=== PATIENT | female | born 1935 | race Caucasian/White ===

== ENCOUNTER 2016-05-27 19:19 | Inpatient (IN) ==
[2016-05-27] MEDS ORDERED: Acetaminophen 325 MG TABLET PO PRN (23:52)
[2016-05-27] MEDS ORDERED: Naloxone 0.4 MG/ML INJ IVP PRN (23:52)
[2016-05-27] MEDS ORDERED: Ondansetron 4 MG/2 ML VIAL IVP PRN (23:52)
[2016-05-27] MEDS ORDERED: *HR* Morphine 2 MG/ML SYRINGE IVP PRN (23:52)
--- NOTE | 2016-05-28 00:01 | Event Note ---
Date of Encounter: 05/28/16 Time of Encounter: 00:00 Patient seen and examined with medical coding manager. Uncomplicated acute diverticulitis. We will start the patient on Levaquin and Flagyl. Keep NPO except for medications tonight. Patient is on dual antiplatelet therapy for drug eluting stents placed about 6 months ago. We will continue those.
--- NOTE | 2016-05-28 00:11 | Internal Med History&Physical ---
Date of Encounter: 05/27/16 Time of Encounter: 23:00 Assessment and Plan (1) Diverticulitis Current visit: Yes Status: Acute Patient presented to outside ED with acute abdominal pain. CT showed enteritis and sigmoid diverticulitis. Patient was unable to tolerate PO antibiotics transferred to [facility] for inpatient management. Diverticulitis uncomplicated at this time. Patient will be NPO, given IV fluids and IV antibiotics. Expect patient to progress appropriately. Will transition to PO antibiotics when appropriate. 1. NPO 2. IV fluids at 100 mils per hour 3. Pain management 4. Zofran for nausea prn 5. Metronidazle 500mg IV Q8H 6. Levofloxacin 500mg IV Q24H Qualifiers: Diverticulitis site: large intestine Diverticulitis bleeding: without bleeding Diverticulitis complication: without perforation or abscess Qualified Code(s): K57.32 - Diverticulitis of large intestine without perforation or abscess without bleeding (2) CAD (coronary artery disease) Current visit: No Status: Chronic Patient with history of CAD s/p stent. She is on telemetry monitoring. Will continue home aspirin and plavix. Qualifiers: Coronary Disease-Associated Artery/Lesion type: [place] artery [place] vs. transplanted heart: [place] heart Associated angina: angina presence unspecified Qualified Code(s): I25.10 - Atherosclerotic heart disease of [place] coronary artery without angina pectoris (3) CHF (congestive heart failure) Current visit: No Status: Chronic Patient with history of CHF on lasix. Not in acute exacerbation at this time. No crackles on exam, no pedal edema, no shortness of breath. Continue home does lasix. Qualifiers: Congestive heart failure type: combined Congestive heart failure chronicity : acute on chronic Qualified Code(s): I50.43 - Acute on chronic combined systolic (congestive) and diastolic (congestive) heart failure (4) CKD (chronic kidney disease) Current visit: No Status: Chronic Patient with history of CKD. Creatinine 1.48 on admission which appears to be baseline. Will continue to monitor kidney function Qualifiers: Chronic kidney disease stage: stage 3 (moderate) Qualified Code(s): N18.3 - Chronic kidney disease, stage 3 (moderate) (5) HTN (hypertension) Current visit: No Status: Chronic Patient with history of hypertension. Will monitor blood pressure and continue home blood pressure medications. Qualifiers: Hypertension type: essential hypertension Qualified Code(s): I10 - Essential (primary) hypertension (6) Hypothyroid Current visit: No Status: Chronic Issue with history of hyperthyroid disease. Will continue home dose levothyroxine. Qualifiers: Hypothyroidism type: unspecified Qualified Code(s): E03.9 - Hypothyroidism , unspecified (7) DVT prophylaxis Current visit: Yes Status: Acute Heparin for DVT prophylaxis. Internal Medicine - H&P: HPI Chief complaint: Abdominal pain Admitted From: Hospital to Hospital Transfer Plans for Post Hospital Care: Home History of present illness: Ms. Leslie is a 80 year old female with PMH of kidney cancer, cardiomyopathy, CHF, CAD, CVA, GERD, HLD, HTN, renal disease and thyroid disease who presented to [facility] with abdominal pain. Patient reports that episodes of abdominal pain started last night. The pain is located in the middle of her abdomen, periumbilically. Patient has chronic constipation and she initially thought that the pain was due to that however she reports she had 3-4 small bowel movement this morning and the pain did not improve. She reports that the episodes started lasting longer and were more painful. Pain was 10/10 in severity when she presented to the ED. Patient reports that she never had pain like this before and she did not take any medications to try and relieve it. She reports associated fever/chills, sweating, belching, nausea/vomiting/dry heaves. Denies, MUNZO, changes in vision, dysphagia, chest pain/pressure, shortness of breath, changes in urinary function (incontinent baseline), or difficulty walking. In the [facility], patient had a temperature of 100.3 degrees. HR 80, RR 18- 20, blood pressure appropriate. O2 saturation 95% on room air. Labs revealed WBC of 12.7 with increased percent neutrophils. Creatinine elevated at 1.48 which appears to be around her baseline. CT abdomen/pelvis showed (1) prominent small bowel loops with inflammatory changes suggestive of enteritis and (2) sigmoid diverticul osis with wall thickening and possible inflammatory changes. Patient was given PO levaquin and flagyl in the ED with intent to seen patient home for outpatient management of diverticulosis. However, patient 's pain increased and she vomited. Because she was unable to tolerate PO antibiotics, she was given IV ertapenum and transferred to [facility]. On exam, patient is awake and alert, in no acute distress. She appears dry on exam. Heart regular rate and rhythm. Lungs clear to auscultation - no crackles. Abdomen soft, diffusely tender but worse periumbilically. No guarding, rebound or rigidity. No pedal edema. Past Med Surg Social Fam HX - Past Medical History Medical history: cancer, cardiomyopathy, CHF, coronary artery disease, CVA, GERD , hyperlipidemia, hypertension, renal disease, thyroid disease Psychiatric history: anxiety, depression - Past Surgical History Surgical History: cholecystectomy, herniorrhaphy, hip replacement, hysterectomy , knee replacement, orthopedic, other, other - Social History Smoking Status: Never smoker Smokeless Tobacco Status: No Alcohol use: none Drug use: none - Family History Father Living Status: Hx Family Cardiac Disorders: Yes Hx Family Respiratory Disorders: Yes Hx Family Cancer: Yes (Uterine) Hx Family GI Disorders: No Hx Family Endocrine Disorder: No Hx Family Neuromuscular Disorders: No Hx Family Neurologic Disorders: No Hx Family HEENT Disorders: No Hx Family Autoimmune Disorders: No Mother Adopted: No Living Status: Internal Medicine - H&P: Meds Levothyroxine Sodium [Tirosint] 75 mcg PO QAM 08/09/15 [History] Omeprazole [PriLOSEC] 20 mg PO BID 08/09/15 [History] Sertraline [Zoloft] 50 mg PO DAILY 08/09/15 [History] Simvastatin [Zocor] 20 mg PO QPM 08/09/15 [History] Aspirin Enteric Coated [Aspirin EC] 81 mg PO DAILY 10/27/15 [History] Ergocalciferol (VITAMIN D2) [Vitamin D2 (50,000 UNIT)] 50,000 unit PO QWEEK 01/01 [History] Ferrous Sulfate 325 mg PO DAILY 10/27/15 [History] Clopidogrel [Plavix] 75 mg PO DAILY #60 tablet 11/01/15 [Rx] Furosemide [Lasix] 20 mg PO DAILY 30 Days 11/01/15 [Rx] Metoprolol XL (24 HR) Succ [Toprol Xl] 12.5 mg PO DAILY 30 Days 11/01/15 [Rx] Potassium Chloride [Klor-Con Sprinkle] 10 meq PO DAILY #30 capsule.er 11/01/15 [ Rx] Levofloxacin [Levaquin] 750 mg PO DAILY #9 tablet 05/27/16 [Rx] MetroNIDAZOLE [Flagyl] 500 mg PO QID 9 Days 05/27/16 [Rx] Ondansetron ODT [Zofran ODT] 4 mg SL Q8HR PRN #6 tab.rapdis 05/27/16 [Rx] Allergies ceftriaxone [From Rocephin] Allergy (Verified 05/27/16 15:18) Hives Sulfa (Sulfonamide Antibiotics) Allergy (Verified 05/27/16 15:18) Hives All Systems PM: A 10-system review of systems was performed and is negative for pertinent findings except as documented above in the HPI. - Constitutional Constitutional: chills, excessive sweating, fever(s) - EENT Eyes: no as per HPI, no change in vision - Cardiovascular Cardiovascular ROS IM: diaphoresis, no chest pain, no claudication, no dyspnea, no dyspnea on exertion, no edema, no irregular heart rhythm, no lightheadedness , no orthopnea, no palpitations - Respiratory Respiratory: no cough, no dyspnea, no dyspnea on exertion, no wheezing - Gastrointestinal Gastrointestinal: abdominal pain, belching, constipation, cramping, nausea, vomiting, no dysphagia, no heartburn, no hematemesis, no hematochezia, no melena - Genitourinary Genitourinary: urinary incontinence - Neurological Neurological ROS: no confusion, no dizziness, no headache(s), no numbness, no weakness - Constitutional Vitals: Temp Pulse Resp BP Pulse Ox 98.7 F 72 15 127/67 93 L 05/27/16 23:50 05/27/16 23:50 05/27/16 23:50 05/27/16 23:50 05/27/16 23:50 General appearance: Present: A&O X 3, pleasant, no acute distress, answers questions appropriately - Head Head exam: Present: atraumatic, normal inspection, normocephalic - Eye Eye exam: Present: EOMI, normal appearance, PERRL - ENT ENT exam: Present: mucous membranes dry - Respiratory Respiratory exam: Present: CTAB. Absent: rales, rhonchi, wheezes - Cardiovascular Cardiovascular exam: Present: RRR - GI/Abdominal GI/Abdominal exam: Present: normal bowel sounds, soft, tenderness. Absent: distended, guarding, rebound, rigid - Extremities Exam Extremities exam: Present: normal inspection. Absent: pedal edema - Neurological Exam Neurological exam: Present: alert, CN II-XII intact, oriented X3, no focal deficits
[2016-05-28] MEDS: 0.9 % Sodium Chloride 1,000 ML IVC SCH ×3 (00:16→21:31)
[2016-05-28] MEDS: *HR* Heparin 5,000 UNIT/ML VIAL SQ SCH ×3 (06:02→21:30)
[2016-05-28] MEDS ORDERED: Furosemide 20 MG TABLET PO SCH (09:00)
[2016-05-28] MEDS ORDERED: POTASSIUM CHLORIDE 10 MEQ PO SCH (09:00)
[2016-05-28] MEDS: MetroNIDAZOLE 500 MG/100 ML 500 MG/100 ML BAG IVPB SCH ×2 (10:12→17:03)
[2016-05-28] MEDS: Metoprolol XL (24 HR) Succ 25 MG TAB.ER.24H PO SCH (10:13)
[2016-05-28] MEDS: Aspirin Enteric Coated 81 MG Tablet PO SCH (10:13)
[2016-05-28] MEDS ORDERED: Levofloxacin 500 MG/100 ML 500 MG/100 ML BAG IVPB SCH (18:00)
--- NOTE | 2016-05-28 23:56 | Internal Med Progress Note ---
Date of Encounter: 05/28/16 Time of Encounter: 15:30 - Subjective Interval history: Ms. Leslie is a 80 year old female with PMH of kidney cancer, cardiomyopathy, CHF, CAD, CVA, GERD, HLD, HTN, CKDIII, hypothyroidism admitted with abdominal pain and diarrhea. She reports less pain, she has not moved her bowel in 8 hours. No fever, chills. CT favor enteritis. She points to her mid abdomen as the site of her pain. O/E: Not in distress Moist mucosa Chest: clinically clear Heart: RRR, HS1/2 no Abdomen: non-distended, soft, non-tender, no masses, BS+, [employer]ANCH: aao x 3, no gross focal deficits Labs and imaging reviewed Leucocytosis has resolved. IMP Gastroenteritis, less likely diverticulitis, giving the location of her pain Leucocytosis likely related to vomiting, now resolved. Chronic morbidities Cardiomyopathy, CHF, CAD, CVA, GERD, HLD, HTN, CKDIII, hypothyroidism PLAN Start clear liquid diet Decrease IVF rate to 50 mls/hr. Continue other care Anticipate discharge tomorrow. - Constitutional Vitals: Temp Pulse Resp BP Pulse Ox 98.8 F 77 14 115/57 94 L 05/28/16 20:16 05/28/16 20:16 05/28/16 20:16 05/28/16 20:16 05/28/16 20:16 General appearance: Present: A&O X 3, pleasant, no acute distress, answers questions appropriately Consult Discharge Plan - Plan Referrals: Princess Love MD [Primary Care Provider] -
[2016-05-29] MEDS: MetroNIDAZOLE 500 MG/100 ML 500 MG/100 ML BAG IVPB SCH ×2 (00:13→09:57)
[2016-05-29] MEDS ORDERED: 0.9 % Sodium Chloride 1,000 ML IVC SCH (00:25)
[2016-05-29 05:20] LABS: Immature Granulocytes % 0.2 % (0-4)
[2016-05-29 05:22] LABS: Basophils # 0.1 K/mcL (0.0-0.2); Basophils % 0.9 %; Eosinophils # 0.5 K/mcL (0.0-0.6); Eosinophils % 8.2 %; Hematocrit 34.5 % (35.3-44.9); Hemoglobin 10.3 g/dL (11.5-15.4); Lymphocytes # 0.8 K/mcL (0.6-4.6); Lymphocytes % 14.5 %; Mean Corpuscular HGB Conc 29.9 g/dL (31.6-35.5); Mean Corpuscular Hemoglobin 25.5 pg (28.0-33.3); Mean Corpuscular Volume 85.4 fL (83.0-100.0); Mean Platelet Volume 11.1 fL (9.4-12.4); Monocytes # 0.5 K/mcL (0.0-1.3); Monocytes % 8.8 %; Neutrophils # 3.8 K/mcL (1.6-8.9); Platelet Count 156 K/mcL (140-400); Red Blood Count 4.04 M/mcL (3.82-4.97); Red Cell Distribution Width 22.7 % (11.5-14.5); Segmented Neutrophils % 67.4 %
[2016-05-29 05:44] LABS: Calcium 8.5 mg/dL (8.6-10.8); Potassium 3.9 mEq/L (3.5-4.5)
[2016-05-29 05:53] LABS: Platelet Estimate Normal (Normal)
[2016-05-29] MEDS: *HR* Heparin 5,000 UNIT/ML VIAL SQ SCH (06:17)
[2016-05-29] MEDS: Aspirin Enteric Coated 81 MG Tablet PO SCH (09:57)
[2016-05-29] MEDS: Metoprolol XL (24 HR) Succ 25 MG TAB.ER.24H PO SCH (09:57)
[2016-05-29 10:59] VITALS: BP 142/80
--- NOTE | 2016-05-29 11:07 | Discharge Summary ---
Date of Encounter: 05/29/16 Time of Encounter: 10:45 - Discharge Medications Prescriptions: Levofloxacin [Levaquin] 500 mg PO DAILY 10 Days MetroNIDAZOLE [Flagyl] 500 mg PO TID 10 Days Home Medications: Levothyroxine Sodium [Tirosint] 75 mcg PO QAM 08/09/15 [History] Omeprazole [PriLOSEC] 20 mg PO BID 08/09/15 [History] Sertraline [Zoloft] 50 mg PO DAILY 08/09/15 [History] Simvastatin [Zocor] 20 mg PO QPM 08/09/15 [History] Aspirin Enteric Coated [Aspirin EC] 81 mg PO DAILY 10/27/15 [History] Ferrous Sulfate 325 mg PO BID 10/27/15 [History] Clopidogrel [Plavix] 75 mg PO DAILY #60 tablet 11/01/15 [Rx] Furosemide [Lasix] 20 mg PO DAILY 30 Days 11/01/15 [Rx] Levofloxacin [Levaquin] 750 mg PO DAILY #9 tablet 05/27/16 [Rx] MetroNIDAZOLE [Flagyl] 500 mg PO QID 9 Days 05/27/16 [Rx] Ondansetron ODT [Zofran ODT] 4 mg SL Q8HR PRN #6 tab.rapdis 05/27/16 [Rx] Metoprolol XL (24 HR) Succ [Toprol Xl] 25 mg PO DAILY 05/28/16 [History] Potassium Chloride [K-Tab ER] 20 meq PO BID 05/28/16 [History] Levofloxacin [Levaquin] 500 mg PO DAILY 10 Days 05/29/16 [Rx] MetroNIDAZOLE [Flagyl] 500 mg PO TID 10 Days 05/29/16 [Rx] Allergies/Adverse Reactions: Allergies ceftriaxone [From Rocephin] Allergy (Verified 05/27/16 15:18) Hives Cephalosporins Allergy (Verified 05/28/16 11:51) Hives Sulfa (Sulfonamide Antibiotics) Allergy (Verified 05/27/16 15:18) Hives Date of admission: 05/28/16 15:24 Primary care physician: Princess Love, - Patient Status Disposition: Home, Self-Care Condition: Good Overall status at discharge: patient is progressing back to baseline - Discharge Instructions Follow Up With: Princess Love MD [Primary Care Provider] - - Diet and Activity Activity: resume usual activities as tolerated Diet: other (LOWER FIBER DIET FOR 1 week, then retrn to high fiber diet.) Hospital course: Ms. Leslie is a 80 year old female - Time Spent with Patient Total time spent providing and/or coordinating discharge services: - Constitutional Vitals: Temp Pulse Resp BP Pulse Ox 98.3 F 60 15 142/80 96 05/29/16 10:56 05/29/16 10:56 05/29/16 10:56 05/29/16 10:56 05/29/16 10:56 General appearance: Present: A&O X 3, pleasant, no acute distress, answers questions appropriately
== END 2016-05-29 12:30 | disposition home or self-care (01) | DRG 391 ==
LOC: 3BNU
PROVIDERS: ADMIT Internal Medicine; ATTEND Internal Medicine Endocrinology, Diabetes & Metabolism

== ENCOUNTER 2019-04-10 16:46 | Inpatient (IN) ==
[2019-04-10] MEDS ORDERED: Naloxone 0.4 MG/ML INJ IVP PRN (21:10)
[2019-04-10] MEDS ORDERED: Acetaminophen 325 MG TABLET PO PRN (21:10)
[2019-04-10] MEDS ORDERED: Ondansetron ODT 4 MG TAB.RAPDIS SL PRN (21:10)
[2019-04-10] MEDS ORDERED: 0.9 % Sodium Chloride 1,000 ML IVC SCH (21:15)
[2019-04-10] MEDS ORDERED: methylPREDNISolone 125 MG/2 ML VIAL IVP ONE (21:19)
[2019-04-10] MEDS ORDERED: Ipratropium/Albuterol Neb 3 ML IH SCH (22:00)
[2019-04-10] MEDS: DilTIAZem 50 MG in 0.9 % Sodium Chloride 40 ML IVC SCH (22:09)
[2019-04-10] MEDS ORDERED: *HR* Metoprolol 5 MG/5 ML VIAL IVP ONE ×2 (23:23→23:24)
[2019-04-10] MEDS ORDERED: Levalbuterol Neb 1.25 MG/3 ML IH ONE (23:30)
[2019-04-11 01:43] LABS: Hematocrit 37.3 % (35.3-44.9); Mean Corpuscular HGB Conc 32.2 g/dL (31.6-35.5); Mean Corpuscular Hemoglobin 28.8 pg (28.0-33.3); Mean Corpuscular Volume 89.4 fL (83.0-100.0); Platelet Count 240 K/mcL (140-400); Red Blood Count 4.17 M/mcL (3.82-4.97); Red Cell Distribution Width 14.8 % (11.5-14.5); White Blood Count 10.3 K/mcL (4.3-11.1)
[2019-04-11] MEDS: DilTIAZem 50 MG in 0.9 % Sodium Chloride 40 ML IVC SCH ×3 (02:00→17:20)
[2019-04-11 02:04] LABS: Calcium 8.5 mg/dL (8.6-10.3); Potassium 3.8 mEq/L (3.5-5.1)
[2019-04-11] MEDS: Levalbuterol Neb 0.63 MG/3 ML IH SCH ×4 (03:51→21:30)
[2019-04-11] MEDS: *HR* Heparin 5,000 UNIT/ML VIAL SQ SCH ×2 (05:37→17:11)
[2019-04-11] MEDS ORDERED: methylPREDNISolone 125 MG/2 ML VIAL IVP SCH (06:00)
[2019-04-11] MEDS: Furosemide 40 MG/4 ML VIAL IVP SCH ×2 (06:40→17:10)
[2019-04-11] MEDS ORDERED: CarBAMazepine XR (12 hr) 100 MG TAB PO SCH (09:00)
[2019-04-11] MEDS: predniSONE 20 MG TABLET PO SCH (09:47)
[2019-04-11] MEDS: Nitrofurantoin (BID) 100 MG CAPSULE PO SCH ×2 (09:48→17:10)
[2019-04-11] MEDS: Aspirin Enteric Coated 81 MG Tablet PO SCH (09:48)
[2019-04-11] MEDS: hydrALAZINE 25 MG TABLET PO SCH (22:00)
[2019-04-11] MEDS: CarBAMazepine 100 MG TABLET PO SCH (22:00)
[2019-04-12] MEDS: Albumin 25% 25gram/100mL 25 GM/100 ML IV.SOLN IVPB SCH ×3 (00:17→16:15)
[2019-04-12 02:52] LABS: Calcium 8.8 mg/dL (8.6-10.3); Potassium 3.7 mEq/L (3.5-5.1)
[2019-04-12 03:03] LABS: Basophils % 0.2 %; Hematocrit 35.6 % (35.3-44.9); Hemoglobin 11.2 g/dL (11.5-15.4); Immature Granulocytes % 0.9 % (0-4); Lymphocytes # 0.4 K/mcL (0.6-4.6); Lymphocytes % 3.9 %; Mean Corpuscular HGB Conc 31.5 g/dL (31.6-35.5); Mean Corpuscular Hemoglobin 29.4 pg (28.0-33.3); Mean Corpuscular Volume 93.4 fL (83.0-100.0); Mean Platelet Volume 11.7 fL (9.4-12.4); Monocytes # 0.7 K/mcL (0.0-1.3); Monocytes % 6.4 %; Neutrophils # 9.4 K/mcL (1.6-8.9); Platelet Count 185 K/mcL (140-400); Red Blood Count 3.81 M/mcL (3.82-4.97); Red Cell Distribution Width 14.6 % (11.5-14.5); Segmented Neutrophils % 88.6 %; White Blood Count 10.6 K/mcL (4.3-11.1)
[2019-04-12] MEDS: Levalbuterol Neb 0.63 MG/3 ML IH SCH ×4 (03:52→22:01)
[2019-04-12] MEDS: DilTIAZem 50 MG in 0.9 % Sodium Chloride 40 ML IVC SCH ×2 (04:46→21:38)
[2019-04-12] MEDS: *HR* Heparin 5,000 UNIT/ML VIAL SQ SCH ×2 (06:38→18:16)
[2019-04-12] MEDS: predniSONE 20 MG TABLET PO SCH (08:35)
[2019-04-12] MEDS: Nitrofurantoin (BID) 100 MG CAPSULE PO SCH ×2 (08:35→16:15)
[2019-04-12] MEDS: Aspirin Enteric Coated 81 MG Tablet PO SCH (08:35)
[2019-04-12] MEDS: CarBAMazepine 100 MG TABLET PO SCH ×2 (08:35→21:29)
[2019-04-12] MEDS ORDERED: levoFLOXacin 750 MG/150 ML 750 MG/150 ML BAG IVPB SCH (09:00)
[2019-04-12] MEDS: hydrALAZINE 25 MG TABLET PO SCH ×2 (11:43→21:37)
[2019-04-12 20:16] LABS: Adenovirus Not Detected (Not Detect); Bordetella Pertussis Not Detected (Not Detect); Chlamydophila pneumoniae Not Detected (Not Detect); Coronavirus 229E Not Detected (Not Detect); Coronavirus HKU1 Not Detected (Not Detect); Coronavirus NL63 Not Detected (Not Detect); Coronavirus OC43 Not Detected (Not Detect); Human Metapneumovirus Not Detected (Not Detect); Human Rhinovirus/Enterovirus Not Detected (Not Detect); Influenza A Subtype 2009 H1 Not Detected (Not Detect); Influenza B Not Detected (Not Detect); Mycoplasma pneumoniae Not Detected (Not Detect); Parainfluenza Virus 1 Not Detected (Not Detect); Parainfluenza Virus 2 Not Detected (Not Detect); Parainfluenza Virus 3 Not Detected (Not Detect); Parainfluenza Virus 4 Not Detected (Not Detect); Respiratory Syncytial Virus Not Detected (Not Detect)
[2019-04-13] MEDS: Albumin 25% 25gram/100mL 25 GM/100 ML IV.SOLN IVPB SCH (00:34)
[2019-04-13 02:51] LABS: Calcium 9.2 mg/dL (8.6-10.3); Potassium 3.5 mEq/L (3.5-5.1)
[2019-04-13] MEDS: Levalbuterol Neb 0.63 MG/3 ML IH SCH ×4 (03:42→22:07)
[2019-04-13] MEDS: *HR* Heparin 5,000 UNIT/ML VIAL SQ SCH ×2 (06:02→17:12)
[2019-04-13] MEDS ORDERED: *HR* Metoprolol 5 MG/5 ML VIAL IVP PRN (08:38)
[2019-04-13] MEDS: Aspirin Enteric Coated 81 MG Tablet PO SCH (09:00)
[2019-04-13] MEDS: CarBAMazepine 100 MG TABLET PO SCH ×2 (09:00→20:30)
[2019-04-13] MEDS: hydrALAZINE 25 MG TABLET PO SCH (09:01)
[2019-04-13] MEDS: predniSONE 20 MG TABLET PO SCH (09:01)
[2019-04-13] MEDS ORDERED: Albumin 25% 25gram/100mL 25 GM/100 ML IV.SOLN IVPB SCH (16:00)
[2019-04-13] MEDS ORDERED: Furosemide 40 MG/4 ML VIAL IVP ONE (17:00)
[2019-04-14 02:58] LABS: Bilirubin,Urine Negative (Negative); Blood,Urine Negative (Negative); Clarity,Urine Clear (Clear); Color,Urine Yellow (Yellow); Glucose,Urine (UA) Normal (Normal); Ketones,Urine Negative (Negative); Leukocyte Esterase,Urine Negative (Negative); Nitrite,Urine Negative (Negative); Protein,Urine Trace mg/dL (Neg-Trace); Specific Gravity,Urine 1.021 (1.010-1.025); Urobilinogen,Urine Normal (Normal)
[2019-04-14] MEDS: Levalbuterol Neb 0.63 MG/3 ML IH SCH ×4 (03:55→21:48)
[2019-04-14] MEDS ORDERED: Albumin 25% 25gram/100mL 25 GM/100 ML IV.SOLN IVPB SCH (04:00)
[2019-04-14 05:30] LABS: Calcium 9.5 mg/dL (8.6-10.3); Potassium 4.2 mEq/L (3.5-5.1); Uric Acid 6.4 mg/dL (2.3-7.6)
[2019-04-14] MEDS: *HR* Heparin 5,000 UNIT/ML VIAL SQ SCH ×2 (06:10→16:25)
[2019-04-14] MEDS: CarBAMazepine 100 MG TABLET PO SCH ×2 (09:06→22:55)
[2019-04-14] MEDS: Aspirin Enteric Coated 81 MG Tablet PO SCH (09:06)
[2019-04-14] MEDS: predniSONE 20 MG TABLET PO SCH (09:06)
[2019-04-15] MEDS: Levalbuterol Neb 0.63 MG/3 ML IH SCH ×4 (03:36→21:56)
[2019-04-15] MEDS: *HR* Heparin 5,000 UNIT/ML VIAL SQ SCH ×2 (06:37→16:47)
[2019-04-15] MEDS: Aspirin Enteric Coated 81 MG Tablet PO SCH (08:43)
[2019-04-15] MEDS: CarBAMazepine 100 MG TABLET PO SCH ×2 (08:43→20:52)
[2019-04-15] MEDS: predniSONE 20 MG TABLET PO SCH (08:44)
[2019-04-16] MEDS: Levalbuterol Neb 0.63 MG/3 ML IH SCH ×2 (03:35→10:25)
[2019-04-16] MEDS: *HR* Heparin 5,000 UNIT/ML VIAL SQ SCH (05:26)
[2019-04-16 07:22] VITALS: BP 127/62
[2019-04-16] MEDS: Aspirin Enteric Coated 81 MG Tablet PO SCH (08:32)
[2019-04-16] MEDS: CarBAMazepine 100 MG TABLET PO SCH (08:32)
[2019-04-16] MEDS: predniSONE 20 MG TABLET PO SCH (08:32)
== END 2019-04-16 11:05 | DRG 280 ==
LOC: 2NENU → SUATTDRO 23:12
PROVIDERS: ADMIT Internal Medicine; ATTEND Family Medicine

== ENCOUNTER 2019-05-22 05:41 | Inpatient (IN) ==
[2019-05-22 06:33] LABS: Basophils # 0.1 K/mcL (0.0-0.2); Basophils % 1.2 %; Eosinophils # 0.4 K/mcL (0.0-0.6); Eosinophils % 3.8 %; Hemoglobin 12.7 g/dL (11.5-15.4); Immature Granulocytes % 0.6 % (0-4); Lymphocytes # 1.2 K/mcL (0.6-4.6); Lymphocytes % 12.2 %; Mean Corpuscular HGB Conc 30.2 g/dL (31.6-35.5); Mean Corpuscular Hemoglobin 29.1 pg (28.0-33.3); Mean Corpuscular Volume 96.3 fL (83.0-100.0); Mean Platelet Volume 10.9 fL (9.4-12.4); Monocytes % 10.1 %; Neutrophils # 7.2 K/mcL (1.6-8.9); Platelet Count 186 K/mcL (140-400); Red Blood Count 4.36 M/mcL (3.82-4.97); Red Cell Distribution Width 16.4 % (11.5-14.5); Segmented Neutrophils % 72.1 %
[2019-05-22 06:54] LABS: Alanine Aminotransferase 7 Units/L (7-52); Albumin 3.7 g/dL (3.5-5.7); Albumin/Globulin Ratio 1.5 (1.1-2.2); Alkaline Phosphatase 86 Units/L (34-104); Aspartate Amino Transferase 13 Units/L (13-39); BUN/Creatinine Ratio 14 (6-26); Bilirubin,Direct 0.2 mg/dL (0.0-0.2); Bilirubin,Indirect 0.7 mg/dL (0.0-1.0); Bilirubin,Total 0.9 mg/dL (0.3-1.0); Blood Urea Nitrogen 20 mg/dL (8-23); Calcium 9.4 mg/dL (8.6-10.3); Carbon Dioxide 28 mEq/L (23-29); Chloride 107 mEq/L (98-107); Globulin 2.4 g/dL (2.4-3.5); Glucose 95 mg/dL (70-105); INR 1.1; Osmolality,Calculated 292 (280-300); Potassium 4.2 mEq/L (3.5-5.1); Prothrombin Time 12.2 Seconds (9.4-12.1); Sodium 140 mEq/L (136-145); Total Protein 6.1 g/dL (6.4-8.9); Troponin I < 0.03 ng/mL (< 0.04); eGFR For African Americans 42 (> 60); eGFR For Non-African Americans 35 (> 60)
[2019-05-22 06:57] LABS: Activated Partial Thrombo Time 33.5 Seconds (26.0-36.0)
[2019-05-22] MEDS ORDERED: Furosemide 40 MG/4 ML VIAL IVP ONE (09:00)
[2019-05-22] MEDS ORDERED: Ipratropium/Albuterol Neb 3 ML IH PRN (09:38)
[2019-05-22 11:27] LABS: Bilirubin,Urine Negative (Negative); Blood,Urine Negative (Negative); Clarity,Urine Clear (Clear); Color,Urine Yellow (Yellow); Glucose,Urine (UA) Normal (Normal); Ketones,Urine Negative (Negative); Leukocyte Esterase,Urine Negative (Negative); Nitrite,Urine Negative (Negative); PH,Urine 6.5 pH Units (5.0-8.0); Protein,Urine Negative (Neg-Trace); Urobilinogen,Urine Normal (Normal)
[2019-05-22] MEDS ORDERED: Perflutren Lipid Microsphere 1.3 ML in 0.9 % Sodium Chloride 8.7 ML IVP ONE ×2 (15:22→15:26)
[2019-05-22] MEDS: Albumin 25% 25gram/100mL 25 GM/100 ML IV.SOLN IVPB SCH ×2 (16:15→23:38)
[2019-05-22] MEDS: Furosemide 40 MG/4 ML VIAL IVP SCH (16:15)
[2019-05-22] MEDS: Metoprolol 100 MG TABLET PO SCH (20:14)
[2019-05-23 06:10] LABS: Calcium 10.1 mg/dL (8.6-10.3); Potassium 3.4 mEq/L (3.5-5.1)
[2019-05-23] MEDS: Furosemide 40 MG/4 ML VIAL IVP SCH ×2 (07:25→16:18)
[2019-05-23] MEDS: Metoprolol 100 MG TABLET PO SCH ×2 (07:25→20:20)
[2019-05-23] MEDS: Aspirin Enteric Coated 81 MG Tablet PO SCH (07:26)
[2019-05-23] MEDS: Albumin 25% 25gram/100mL 25 GM/100 ML IV.SOLN IVPB SCH ×2 (07:28→16:19)
[2019-05-23] MEDS: *HR* Heparin 5,000 UNIT/ML VIAL SQ SCH (17:37)
[2019-05-24] MEDS: *HR* Heparin 5,000 UNIT/ML VIAL SQ SCH ×2 (05:35→17:29)
[2019-05-24] MEDS: Aspirin Enteric Coated 81 MG Tablet PO SCH (07:12)
[2019-05-24] MEDS: Furosemide 40 MG/4 ML VIAL IVP SCH (07:12)
[2019-05-24] MEDS: Metoprolol 100 MG TABLET PO SCH ×2 (07:13→21:49)
[2019-05-24 07:17] LABS: Calcium 10.7 mg/dL (8.6-10.3); Potassium 3.8 mEq/L (3.5-5.1)
[2019-05-24] MEDS: Furosemide 40 MG TABLET PO SCH (17:29)
[2019-05-25] MEDS: *HR* Heparin 5,000 UNIT/ML VIAL SQ SCH ×2 (06:06→17:18)
[2019-05-25] MEDS: Aspirin Enteric Coated 81 MG Tablet PO SCH (07:49)
[2019-05-25] MEDS: Metoprolol 100 MG TABLET PO SCH (07:50)
[2019-05-25] MEDS: Furosemide 40 MG TABLET PO SCH (07:50)
[2019-05-25 08:10] LABS: Calcium 9.6 mg/dL (8.6-10.3); Potassium 4.1 mEq/L (3.5-5.1)
[2019-05-25 12:53] LABS: Potassium 4.3 mEq/L (3.5-5.1)
[2019-05-25] MEDS ORDERED: 0.9 % Sodium Chloride 500 ML IVC ONE (14:30)
[2019-05-25] MEDS ORDERED: 0.9 % Sodium Chloride 500 ML ONE (14:48)
[2019-05-26] MEDS: Metoprolol 100 MG TABLET PO SCH ×2 (03:15→08:11)
[2019-05-26 05:41] LABS: Calcium 9.7 mg/dL (8.6-10.3); Potassium 4.1 mEq/L (3.5-5.1)
[2019-05-26] MEDS: Aspirin Enteric Coated 81 MG Tablet PO SCH (08:11)
[2019-05-26] MEDS: *HR* Heparin 5,000 UNIT/ML VIAL SQ SCH (08:11)
[2019-05-26 10:56] VITALS: BP 100/70
[2019-05-26 14:03] LABS: Calcium 9.7 mg/dL (8.6-10.3); Potassium 3.6 mEq/L (3.5-5.1)
== END 2019-05-26 16:16 | disposition home health service (06) | DRG 291 ==
LOC: EMEROOARM 05:41 → 3ANU 05:41 → SUATTDRO 09:35 → 3ANU 10:00
PROVIDERS: ADMIT Internal Medicine; ATTEND Internal Medicine

== ENCOUNTER 2019-07-19 12:54 | Inpatient (IN) ==
[2019-07-19] MEDS ORDERED: *HR* Promethazine 25 MG/ML VIAL IVP PRN (15:16)
[2019-07-19] MEDS ORDERED: Naloxone 0.4 MG/ML INJ IVP PRN (15:16)
[2019-07-19] MEDS: Bumetanide 1 MG/4 ML VIAL IVP SCH (16:54)
[2019-07-19] MEDS: Azithromycin 500 MG in 0.9 % Sodium Chloride 250 ML IVPB SCH (16:54)
[2019-07-19] MEDS: *HR* Heparin 5,000 UNIT/ML VIAL SQ SCH (16:54)
[2019-07-19] MEDS: Metoprolol 100 MG TABLET PO SCH (20:30)
[2019-07-20 04:49] LABS: Basophils # 0.1 K/mcL (0.0-0.2); Basophils % 0.8 %; Eosinophils # 0.4 K/mcL (0.0-0.6); Eosinophils % 4.5 %; Hematocrit 42.7 % (35.3-44.9); Hemoglobin 12.9 g/dL (11.5-15.4); Immature Granulocytes % 0.2 % (0-4); Lymphocytes # 1.4 K/mcL (0.6-4.6); Lymphocytes % 15.9 %; Mean Corpuscular HGB Conc 30.2 g/dL (31.6-35.5); Mean Corpuscular Hemoglobin 28.9 pg (28.0-33.3); Mean Corpuscular Volume 95.7 fL (83.0-100.0); Monocytes # 0.8 K/mcL (0.0-1.3); Monocytes % 9.5 %; Neutrophils # 6.1 K/mcL (1.6-8.9); Platelet Count 184 K/mcL (140-400); Red Blood Count 4.46 M/mcL (3.82-4.97); Red Cell Distribution Width 13.7 % (11.5-14.5); Segmented Neutrophils % 69.1 %; White Blood Count 8.8 K/mcL (4.3-11.1)
[2019-07-20 05:10] LABS: Calcium 9.1 mg/dL (8.6-10.3); Magnesium 2.1 mg/dL (1.6-2.6); Phosphorous 4.2 mg/dL (2.7-4.5); Potassium 4.1 mEq/L (3.5-5.1)
[2019-07-20] MEDS: *HR* Heparin 5,000 UNIT/ML VIAL SQ SCH ×2 (06:30→18:12)
[2019-07-20] MEDS: Aspirin Enteric Coated 81 MG Tablet PO SCH (08:35)
[2019-07-20] MEDS: Bumetanide 1 MG/4 ML VIAL IVP SCH ×2 (08:35→18:12)
[2019-07-20] MEDS: Metoprolol 100 MG TABLET PO SCH ×2 (08:35→19:30)
[2019-07-20] MEDS ORDERED: Albumin 25% 25gram/100mL 25 GM/100 ML IV.SOLN IVPB ONE (11:17)
[2019-07-20] MEDS: Azithromycin 500 MG in 0.9 % Sodium Chloride 250 ML IVPB SCH (18:11)
[2019-07-21] MEDS: *HR* Heparin 5,000 UNIT/ML VIAL SQ SCH (06:21)
[2019-07-21 07:02] LABS: Calcium 8.9 mg/dL (8.6-10.3); Potassium 4.5 mEq/L (3.5-5.1)
[2019-07-21] MEDS: Metoprolol 100 MG TABLET PO SCH (08:28)
[2019-07-21] MEDS: Aspirin Enteric Coated 81 MG Tablet PO SCH (08:30)
[2019-07-21] MEDS: Bumetanide 1 MG/4 ML VIAL IVP SCH (08:30)
[2019-07-21 12:13] VITALS: BP 105/66
[2019-07-21] MEDS: Azithromycin 500 MG in 0.9 % Sodium Chloride 250 ML IVPB SCH (15:37)
[2019-07-22] MEDS ORDERED: Azithromycin 250 MG TABLET PO SCH (09:00)
== END 2019-07-21 17:43 | disposition home health service (06) | DRG 291 ==
LOC: 2NENU → SUATTDRO 14:55 → 2ANU 07-20 20:20
PROVIDERS: ADMIT Internal Medicine; ATTEND Internal Medicine

== ENCOUNTER 2021-01-05 12:55 | Inpatient (IN) ==
[2021-01-05] MEDS ORDERED: Morphine Sulfate 2 MG/ML SYRINGE IVP ONE ×3 (13:22→19:00)
[2021-01-05 13:57] LABS: Basophils # 0.1 K/mcL (0.0-0.2); Eosinophils # 0.3 K/mcL (0.0-0.6); Eosinophils % 3.3 %; Hematocrit 44.5 % (35.3-44.9); Hemoglobin 13.5 g/dL (11.5-15.4); Immature Granulocytes % 0.4 % (0-4); Lymphocytes # 1.1 K/mcL (0.6-4.6); Lymphocytes % 13.6 %; Mean Corpuscular HGB Conc 30.3 g/dL (31.6-35.5); Mean Corpuscular Hemoglobin 28.3 pg (28.0-33.3); Mean Corpuscular Volume 93.3 fL (83.0-100.0); Mean Platelet Volume 11.1 fL (9.4-12.4); Monocytes # 0.6 K/mcL (0.0-1.3); Monocytes % 6.8 %; Neutrophils # 6.3 K/mcL (1.6-8.9); Platelet Count 175 K/mcL (140-400); Red Blood Count 4.77 M/mcL (3.82-4.97); Red Cell Distribution Width 13.7 % (11.5-14.5); Segmented Neutrophils % 74.9 %; White Blood Count 8.4 K/mcL (4.3-11.1)
[2021-01-05 14:06] LABS: INR 1.1; Prothrombin Time 11.9 Seconds (9.4-12.1)
[2021-01-05 14:09] LABS: Activated Partial Thrombo Time 30.6 Seconds (26.0-36.0)
[2021-01-05] MEDS ORDERED: Isovue-370 500 ML BOTTLE IVP ONE (14:51)
[2021-01-05 16:34] LABS: Calcium 9.2 mg/dL (8.6-10.3); Potassium 4.3 mEq/L (3.5-5.1)
[2021-01-05] MEDS ORDERED: Ipratropium/Albuterol Neb 3 ML IH PRN (22:01)
[2021-01-05] MEDS ORDERED: Acetaminophen 325 MG TABLET PO PRN (22:08)
[2021-01-05] MEDS ORDERED: *HR* OxyCODONE Immed Rel 5 MG TABLET PO PRN (22:08)
[2021-01-05] MEDS ORDERED: Naloxone 0.4 MG/ML INJ IVP PRN (22:08)
[2021-01-05] MEDS ORDERED: Prochlorperazine 10 MG/2 ML VIAL IVP PRN (22:16)
[2021-01-05] MEDS: Ergocalciferol (VIT D2) 50,000 UNIT (1.25MG) CAP PO SCH (22:33)
[2021-01-05 23:33] LABS: Influenza A PCR Negative (Negative); Influenza B PCR Negative (Negative); Resp. Syncytial Virus PCR Negative (Negative)
[2021-01-05 23:34] LABS: SARS-CoV-2 by PCR (In House) Negative (Negative)
[2021-01-06 01:47] LABS: Hematocrit 39.1 % (35.3-44.9); Hemoglobin 12.1 g/dL (11.5-15.4); Mean Corpuscular HGB Conc 30.9 g/dL (31.6-35.5); Mean Corpuscular Hemoglobin 28.9 pg (28.0-33.3); Mean Corpuscular Volume 93.3 fL (83.0-100.0); Mean Platelet Volume 11.2 fL (9.4-12.4); Platelet Count 160 K/mcL (140-400); Red Blood Count 4.19 M/mcL (3.82-4.97); Red Cell Distribution Width 13.6 % (11.5-14.5)
[2021-01-06 01:59] LABS: INR 1.1; Prothrombin Time 12.7 Seconds (9.4-12.1)
[2021-01-06 02:02] LABS: Activated Partial Thrombo Time 33.3 Seconds (26.0-36.0)
[2021-01-06 02:08] LABS: Albumin 3.5 g/dL (3.5-5.7); Chol/HDL Ratio 2.7 (0-4.9); Magnesium 2.2 mg/dL (1.6-2.6); Potassium 4.5 mEq/L (3.5-5.1)
[2021-01-06 02:51] LABS: Thyroid Stimulating Hormone 1.674 mcIU/mL (0.340-5.600)
[2021-01-06 06:41] LABS: Estimated Average Glucose 108 mg/dl; Hemoglobin A1C 5.4 %
[2021-01-06] MEDS ORDERED: Isovue-370 500 ML BOTTLE IVP ONE (08:40)
[2021-01-06] MEDS ORDERED: Famotidine 20 MG TABLET PO SCH (09:00)
[2021-01-06] MEDS ORDERED: Torsemide 20 MG TABLET PO SCH (09:00)
[2021-01-06] MEDS ORDERED: Metoprolol 100 MG TABLET PO SCH (09:00)
[2021-01-06] MEDS ORDERED: Ringers Solution, Lactated 1,000 ML IVC ONE (11:38)
[2021-01-06] MEDS ORDERED: 0.9 % Sodium Chloride 1,000 ML ONE (11:39)
[2021-01-06] MEDS ORDERED: *HR* FentaNYL (PF) 100 MCG/2 ML VIAL ONE ×2 (14:06→16:49)
[2021-01-06] MEDS: Aspirin Enteric Coated 81 MG Tablet PO SCH (15:51)
[2021-01-06] MEDS ORDERED: Heparin 1,000 UNITS/500 mL 500 ML ONE (16:47)
[2021-01-06] MEDS ORDERED: Lidocaine HCL 4 ML Topical Solution (Laryng-O-Jet Kit Sterile Pak) TP ONE (16:50)
[2021-01-06] MEDS ORDERED: *HR* Rocuronium Bromide 50 MG/5 ML VIAL ONE ×2 (16:50→18:57)
[2021-01-06] MEDS ORDERED: *HR* Succinylcholine 200 MG/10 ML VIAL IVP ONE (16:50)
[2021-01-06] MEDS ORDERED: Ondansetron 4 MG/2 ML VIAL ONE (16:50)
[2021-01-06] MEDS ORDERED: Lidocaine -MPF 2% 5 ML VIAL ONE ×3 (16:50→17:49)
[2021-01-06] MEDS ORDERED: *HR* Etomidate 40 MG/20 ML VIAL IVP ONE (16:57)
[2021-01-06] MEDS ORDERED: *HR* Vasopressin 20 UNIT/ML VIAL ONE ×2 (18:00→21:16)
[2021-01-06] MEDS ORDERED: Ondansetron 4 MG/2 ML VIAL IVP PRN (18:22)
[2021-01-06] MEDS ORDERED: Morphine Sulfate 2 MG/ML SYRINGE IVP PRN (18:22)
[2021-01-06] MEDS ORDERED: ceFAZolin 2,000 MG in Water for inj. (sterile) 20 ML IVP ONE (18:33)
[2021-01-06] MEDS ORDERED: Albumin Human 5% 25.0 GM/500 ML IV.SOLN ONE (21:18)
[2021-01-06] MEDS ORDERED: Sugammadex Sodium 200 MG/2 ML VIAL IV ONE (21:35)
[2021-01-06] MEDS ORDERED: Hyaluronidase 200 UNIT in 0.9 % Sodium Chloride 10 ML SQ ONE (22:48)
[2021-01-06] MEDS ORDERED: Phentolamine Mesylate 5 MG VIAL IJ ONE (23:45)
[2021-01-07] MEDS ORDERED: *HR* HYDROmorphone (PF) 1 MG/ML SYRINGE IVP PRN (01:04)
[2021-01-07] MEDS ORDERED: 0.9 % Sodium Chloride 500 ML IVC ONE ×2 (02:18→03:45)
[2021-01-07] MEDS: CeFAZolin 2,000 MG/120 ML BAG IVPB SCH ×4 (03:30→23:40)
[2021-01-07 04:30] LABS: Hematocrit 29.8 % (35.3-44.9); Hemoglobin 8.9 g/dL (11.5-15.4); Mean Corpuscular HGB Conc 29.9 g/dL (31.6-35.5); Mean Corpuscular Hemoglobin 28.6 pg (28.0-33.3); Mean Corpuscular Volume 95.8 fL (83.0-100.0); Mean Platelet Volume 11.4 fL (9.4-12.4); Platelet Count 122 K/mcL (140-400); Red Blood Count 3.11 M/mcL (3.82-4.97)
[2021-01-07 04:50] LABS: Calcium 8.6 mg/dL (8.6-10.3); Potassium 4.8 mEq/L (3.5-5.1)
[2021-01-07] MEDS: Famotidine 20 MG TABLET PO SCH (06:30)
[2021-01-07] MEDS ORDERED: Ringers Solution, Lactated 1,000 ML IVC ONE (07:39)
[2021-01-07] MEDS: Aspirin Enteric Coated 81 MG Tablet PO SCH (08:04)
[2021-01-07] MEDS: Metoprolol XL (24 HR) Succ 25 MG TAB.ER.24H PO SCH ×2 (08:05→13:06)
[2021-01-07] MEDS ORDERED: haloperidoL 1 MG TABLET PO PRN (13:08)
[2021-01-07] MEDS ORDERED: Iron Sucrose Complex 250 MG in 0.9 % Sodium Chloride 250 ML IVPB ONE (15:44)
[2021-01-07] MEDS ORDERED: Ringers Solution, Lactated 1,000 ML ONE (16:07)
[2021-01-07] MEDS ORDERED: Levalbuterol Neb 0.63 MG/3 ML IH PRN (16:08)
[2021-01-07] MEDS: *HR* Metoprolol 5 MG/5 ML VIAL IVP PRN (16:17)
[2021-01-07] MEDS ORDERED: *HR* Digoxin 0.5 MG/2 ML AMPUL IVP ONE ×2 (16:22→21:00)
[2021-01-07] MEDS ORDERED: *HR* Amiodarone 200 MG TABLET PO SCH (16:30)
[2021-01-07] MEDS ORDERED: Ringers Solution, Lactated 1,000 ML IVC SCH (16:30)
[2021-01-07] MEDS: Cyanocobalamin (B-12) 1,000 MCG/ML VIAL SQ ONE ×2 (16:38→17:06)
[2021-01-07] MEDS ORDERED: *HR* Digoxin 0.5 MG/2 ML AMPUL IVP PRN (21:00)
[2021-01-07] MEDS ORDERED: Temazepam 15 MG CAPSULE PO ONE (21:00)
[2021-01-08] MEDS: Famotidine 20 MG TABLET PO SCH (06:10)
[2021-01-08 06:45] LABS: Basophils % 0.4 %; Eosinophils % 0.3 %; Hematocrit 26.9 % (35.3-44.9); Hemoglobin 7.9 g/dL (11.5-15.4); Immature Granulocytes % 0.9 % (0-4); Lymphocytes # 0.9 K/mcL (0.6-4.6); Lymphocytes % 8.6 %; Mean Corpuscular HGB Conc 29.4 g/dL (31.6-35.5); Mean Corpuscular Hemoglobin 28.6 pg (28.0-33.3); Mean Corpuscular Volume 97.5 fL (83.0-100.0); Mean Platelet Volume 11.5 fL (9.4-12.4); Monocytes # 1.2 K/mcL (0.0-1.3); Monocytes % 11.2 %; Neutrophils # 8.2 K/mcL (1.6-8.9); Nucleated Red Blood Cells 0.2 /100 WBC (0); Platelet Count 140 K/mcL (140-400); Red Blood Count 2.76 M/mcL (3.82-4.97); Red Cell Distribution Width 14.4 % (11.5-14.5); Segmented Neutrophils % 78.6 %; White Blood Count 10.4 K/mcL (4.3-11.1)
[2021-01-08 07:03] LABS: Calcium 8.9 mg/dL (8.6-10.3); Magnesium 2.2 mg/dL (1.6-2.6); Potassium 4.4 mEq/L (3.5-5.1)
[2021-01-08] MEDS ORDERED: *HR* Digoxin 0.5 MG/2 ML AMPUL IVP PRN (07:39)
[2021-01-08] MEDS: Metoprolol XL (24 HR) Succ 25 MG TAB.ER.24H PO SCH (08:15)
[2021-01-08] MEDS: Aspirin Enteric Coated 81 MG Tablet PO SCH (08:15)
[2021-01-08] MEDS ORDERED: *HR* Digoxin 0.125 MG TABLET PO SCH (09:00)
[2021-01-08] MEDS ORDERED: Acetaminophen IV 1,000 MG/100 ML BAG IVPB ONE (09:23)
[2021-01-08] MEDS: CeFAZolin 2,000 MG/120 ML BAG IVPB SCH ×3 (15:48→23:03)
[2021-01-08] MEDS ORDERED: 0.9 % Sodium Chloride 250 ML IVC SCH (18:15)
[2021-01-08] MEDS: *HR* Metoprolol 5 MG/5 ML VIAL IVP PRN (23:53)
[2021-01-09 05:02] LABS: Basophils # 0.1 K/mcL (0.0-0.2); Basophils % 0.6 %; Eosinophils # 0.2 K/mcL (0.0-0.6); Eosinophils % 1.6 %; Hematocrit 27.4 % (35.3-44.9); Hemoglobin 8.3 g/dL (11.5-15.4); Lymphocytes # 0.9 K/mcL (0.6-4.6); Lymphocytes % 9.7 %; Mean Corpuscular HGB Conc 30.3 g/dL (31.6-35.5); Mean Corpuscular Hemoglobin 29.4 pg (28.0-33.3); Mean Corpuscular Volume 97.2 fL (83.0-100.0); Monocytes # 0.9 K/mcL (0.0-1.3); Monocytes % 9.8 %; Neutrophils # 7.2 K/mcL (1.6-8.9); Nucleated Red Blood Cells 0.2 /100 WBC (0); Platelet Count 151 K/mcL (140-400); Red Blood Count 2.82 M/mcL (3.82-4.97); Red Cell Distribution Width 14.3 % (11.5-14.5); Segmented Neutrophils % 77.3 %; White Blood Count 9.3 K/mcL (4.3-11.1)
[2021-01-09 05:21] LABS: Magnesium 2.1 mg/dL (1.6-2.6); Potassium 4.4 mEq/L (3.5-5.1)
[2021-01-09] MEDS: Famotidine 20 MG TABLET PO SCH (06:15)
[2021-01-09] MEDS: *HR* Metoprolol 5 MG/5 ML VIAL IVP PRN ×2 (06:15→13:39)
[2021-01-09] MEDS: Metoprolol XL (24 HR) Succ 25 MG TAB.ER.24H PO SCH (13:40)
[2021-01-09] MEDS: CeFAZolin 2,000 MG/120 ML BAG IVPB SCH ×2 (13:40→20:20)
[2021-01-09] MEDS: Aspirin Enteric Coated 81 MG Tablet PO SCH (13:40)
[2021-01-10] MEDS: CeFAZolin 2,000 MG/120 ML BAG IVPB SCH ×4 (01:20→23:47)
[2021-01-10 05:01] LABS: Basophils # 0.1 K/mcL (0.0-0.2); Basophils % 0.6 %; Eosinophils # 0.2 K/mcL (0.0-0.6); Eosinophils % 2.1 %; Hematocrit 27.5 % (35.3-44.9); Immature Granulocytes % 0.9 % (0-4); Lymphocytes # 0.8 K/mcL (0.6-4.6); Lymphocytes % 8.9 %; Mean Corpuscular HGB Conc 29.1 g/dL (31.6-35.5); Mean Corpuscular Hemoglobin 28.6 pg (28.0-33.3); Mean Corpuscular Volume 98.2 fL (83.0-100.0); Mean Platelet Volume 11.4 fL (9.4-12.4); Monocytes # 0.8 K/mcL (0.0-1.3); Monocytes % 8.1 %; Nucleated Red Blood Cells 0.2 /100 WBC (0); Platelet Count 129 K/mcL (140-400); Red Cell Distribution Width 14.6 % (11.5-14.5); Segmented Neutrophils % 79.4 %; White Blood Count 9.4 K/mcL (4.3-11.1)
[2021-01-10 05:02] LABS: Neutrophils # 7.5 K/mcL (1.6-8.9)
[2021-01-10 05:17] LABS: Calcium 8.4 mg/dL (8.6-10.3); Magnesium 2.1 mg/dL (1.6-2.6); Potassium 4.2 mEq/L (3.5-5.1)
[2021-01-10] MEDS: Famotidine 20 MG TABLET PO SCH (05:47)
[2021-01-10] MEDS: *HR* Digoxin 0.5 MG/2 ML AMPUL IVP SCH (10:42)
[2021-01-10] MEDS: Metoprolol XL (24 HR) Succ 25 MG TAB.ER.24H PO SCH (10:42)
[2021-01-10] MEDS: Aspirin Enteric Coated 81 MG Tablet PO SCH (10:42)
[2021-01-11] MEDS: *HR* Metoprolol 5 MG/5 ML VIAL IVP PRN (04:26)
[2021-01-11 04:57] LABS: Basophils # 0.1 K/mcL (0.0-0.2); Basophils % 0.6 %; Eosinophils # 0.3 K/mcL (0.0-0.6); Eosinophils % 3.7 %; Hemoglobin 8.3 g/dL (11.5-15.4); Immature Granulocytes % 0.6 % (0-4); Lymphocytes # 0.8 K/mcL (0.6-4.6); Lymphocytes % 9.2 %; Mean Corpuscular HGB Conc 29.6 g/dL (31.6-35.5); Mean Corpuscular Hemoglobin 28.7 pg (28.0-33.3); Mean Corpuscular Volume 96.9 fL (83.0-100.0); Mean Platelet Volume 10.8 fL (9.4-12.4); Monocytes # 0.8 K/mcL (0.0-1.3); Monocytes % 8.5 %; Neutrophils # 6.9 K/mcL (1.6-8.9); Nucleated Red Blood Cells 0.3 /100 WBC (0); Platelet Count 164 K/mcL (140-400); Red Blood Count 2.89 M/mcL (3.82-4.97); Red Cell Distribution Width 14.6 % (11.5-14.5); Segmented Neutrophils % 77.4 %; White Blood Count 8.9 K/mcL (4.3-11.1)
[2021-01-11 05:12] LABS: Calcium 8.5 mg/dL (8.6-10.3); Potassium 4.3 mEq/L (3.5-5.1)
[2021-01-11] MEDS: Famotidine 20 MG TABLET PO SCH (05:52)
[2021-01-11] MEDS: CeFAZolin 2,000 MG/120 ML BAG IVPB SCH ×3 (08:50→23:31)
[2021-01-11] MEDS: Aspirin Enteric Coated 81 MG Tablet PO SCH (08:51)
[2021-01-11] MEDS: *HR* Digoxin 0.5 MG/2 ML AMPUL IVP SCH (08:51)
[2021-01-11] MEDS: Metoprolol XL (24 HR) Succ 25 MG TAB.ER.24H PO SCH (08:52)
[2021-01-12 05:19] LABS: Basophils # 0.1 K/mcL (0.0-0.2); Basophils % 0.6 %; Eosinophils # 0.3 K/mcL (0.0-0.6); Eosinophils % 3.6 %; Hematocrit 27.3 % (35.3-44.9); Hemoglobin 8.3 g/dL (11.5-15.4); Immature Granulocytes % 0.8 % (0-4); Lymphocytes # 0.9 K/mcL (0.6-4.6); Lymphocytes % 9.7 %; Mean Corpuscular HGB Conc 30.4 g/dL (31.6-35.5); Mean Corpuscular Hemoglobin 29.5 pg (28.0-33.3); Mean Corpuscular Volume 97.2 fL (83.0-100.0); Mean Platelet Volume 10.9 fL (9.4-12.4); Monocytes # 0.8 K/mcL (0.0-1.3); Monocytes % 8.9 %; Neutrophils # 6.8 K/mcL (1.6-8.9); Nucleated Red Blood Cells 0.2 /100 WBC (0); Platelet Count 176 K/mcL (140-400); Red Blood Count 2.81 M/mcL (3.82-4.97); Red Cell Distribution Width 14.8 % (11.5-14.5); Segmented Neutrophils % 76.4 %; White Blood Count 8.8 K/mcL (4.3-11.1)
[2021-01-12 05:34] LABS: Calcium 8.6 mg/dL (8.6-10.3); Potassium 4.2 mEq/L (3.5-5.1)
[2021-01-12] MEDS: Famotidine 20 MG TABLET PO SCH (05:49)
[2021-01-12] MEDS: Aspirin Enteric Coated 81 MG Tablet PO SCH (07:42)
[2021-01-12] MEDS: Metoprolol XL (24 HR) Succ 25 MG TAB.ER.24H PO SCH ×2 (07:42→20:19)
[2021-01-12] MEDS: CeFAZolin 2,000 MG/120 ML BAG IVPB SCH ×2 (09:15→17:21)
[2021-01-12] MEDS: *HR* Digoxin 0.5 MG/2 ML AMPUL IVP SCH (09:16)
[2021-01-12] MEDS: Ergocalciferol (VIT D2) 50,000 UNIT (1.25MG) CAP PO SCH (20:21)
[2021-01-13] MEDS: CeFAZolin 2,000 MG/120 ML BAG IVPB SCH ×2 (00:21→07:57)
[2021-01-13 05:25] LABS: Basophils # 0.1 K/mcL (0.0-0.2); Basophils % 0.6 %; Eosinophils # 0.4 K/mcL (0.0-0.6); Eosinophils % 4.3 %; Hematocrit 27.3 % (35.3-44.9); Hemoglobin 8.3 g/dL (11.5-15.4); Immature Granulocytes % 1.1 % (0-4); Lymphocytes # 0.8 K/mcL (0.6-4.6); Lymphocytes % 9.3 %; Mean Corpuscular HGB Conc 30.4 g/dL (31.6-35.5); Mean Corpuscular Hemoglobin 29.5 pg (28.0-33.3); Mean Corpuscular Volume 97.2 fL (83.0-100.0); Mean Platelet Volume 10.9 fL (9.4-12.4); Monocytes # 0.7 K/mcL (0.0-1.3); Monocytes % 8.7 %; Neutrophils # 6.3 K/mcL (1.6-8.9); Nucleated Red Blood Cells 0.5 /100 WBC (0); Platelet Count 196 K/mcL (140-400); Red Blood Count 2.81 M/mcL (3.82-4.97); White Blood Count 8.3 K/mcL (4.3-11.1)
[2021-01-13 05:41] LABS: Calcium 8.6 mg/dL (8.6-10.3); Potassium 4.1 mEq/L (3.5-5.1)
[2021-01-13] MEDS: Famotidine 20 MG TABLET PO SCH (05:46)
[2021-01-13 06:37] VITALS: BP 129/74; PULSE 81; TEMP 97.9; O2SAT 94
[2021-01-13] MEDS: Metoprolol XL (24 HR) Succ 25 MG TAB.ER.24H PO SCH (07:56)
[2021-01-13] MEDS: Aspirin Enteric Coated 81 MG Tablet PO SCH (07:56)
[2021-01-13 11:17] LABS: Influenza A PCR Negative (Negative); Influenza B PCR Negative (Negative); Resp. Syncytial Virus PCR Negative (Negative); SARS-CoV-2 by PCR (In House) Negative (Negative)
== END 2021-01-13 15:06 | DRG 493 ==
LOC: EMEROOARM 12:55 → 4WAOSI 12:55 → SUATTDRO 22:08
PROVIDERS: ADMIT Internal Medicine; ATTEND Internal Medicine

== ENCOUNTER 2021-02-22 11:25 | Inpatient (IN) ==
[2021-02-22] MEDS ORDERED: Naloxone 0.4 MG/ML INJ IVP PRN (12:55)
[2021-02-22 13:59] LABS: Basophils % 0.3 %; Eosinophils % 0.3 %; Hematocrit 37.9 % (35.3-44.9); Hemoglobin 11.7 g/dL (11.5-15.4); Immature Granulocytes % 0.6 % (0-4); Lymphocytes # 0.8 K/mcL (0.6-4.6); Lymphocytes % 7.2 %; Mean Corpuscular HGB Conc 30.9 g/dL (31.6-35.5); Mean Corpuscular Hemoglobin 29.8 pg (28.0-33.3); Mean Corpuscular Volume 96.4 fL (83.0-100.0); Mean Platelet Volume 10.3 fL (9.4-12.4); Monocytes # 0.7 K/mcL (0.0-1.3); Monocytes % 6.2 %; Neutrophils # 9.2 K/mcL (1.6-8.9); Platelet Count 180 K/mcL (140-400); Red Blood Count 3.93 M/mcL (3.82-4.97); Red Cell Distribution Width 14.6 % (11.5-14.5); Segmented Neutrophils % 85.4 %; White Blood Count 10.8 K/mcL (4.3-11.1)
[2021-02-22 14:34] LABS: Calcium 9.1 mg/dL (8.6-10.3); Potassium 3.8 mEq/L (3.5-5.1)
[2021-02-23] MEDS ORDERED: *HR* Metoprolol 5 MG/5 ML VIAL IVP ONE ×2 (00:43→01:32)
[2021-02-23] MEDS ORDERED: methylPREDNISolone 125 MG/2 ML VIAL IVP ONE (00:53)
[2021-02-23] MEDS ORDERED: DilTIAZem 50 MG/50 ML IV.SOLN IVC SCH (01:15)
[2021-02-23 01:40] LABS: Basophils # 0.1 K/mcL (0.0-0.2); Basophils % 0.5 %; Eosinophils # 0.2 K/mcL (0.0-0.6); Eosinophils % 1.6 %; Hematocrit 39.2 % (35.3-44.9); Hemoglobin 11.7 g/dL (11.5-15.4); Immature Granulocytes % 0.7 % (0-4); Lymphocytes # 1.2 K/mcL (0.6-4.6); Lymphocytes % 8.6 %; Mean Corpuscular HGB Conc 29.8 g/dL (31.6-35.5); Mean Corpuscular Hemoglobin 29.2 pg (28.0-33.3); Mean Corpuscular Volume 97.8 fL (83.0-100.0); Mean Platelet Volume 10.6 fL (9.4-12.4); Monocytes % 7.6 %; Platelet Count 187 K/mcL (140-400); Red Blood Count 4.01 M/mcL (3.82-4.97); Red Cell Distribution Width 14.8 % (11.5-14.5); White Blood Count 13.6 K/mcL (4.3-11.1)
[2021-02-23 02:30] LABS: BUN/Creatinine Ratio 18 (6-26); Blood Urea Nitrogen 24 mg/dL (8-23); Calcium 8.9 mg/dL (8.6-10.3); Carbon Dioxide 21 mEq/L (23-29); Chloride 105 mEq/L (98-107); Glucose 103 mg/dL (70-105); Osmolality,Calculated 292 (280-300); Sodium 139 mEq/L (136-145); Troponin I < 0.03 ng/mL (< 0.04); eGFR For African Americans 45 (> 60); eGFR For Non-African Americans 37 (> 60)
[2021-02-23] MEDS ORDERED: levoFLOXacin 750 MG/150 ML 750 MG/150 ML BAG IVPB ONE (02:51)
[2021-02-23] MEDS ORDERED: Acetaminophen 325 MG TABLET PO PRN (02:58)
[2021-02-23] MEDS: Levalbuterol Neb 1.25 MG/3 ML IH SCH ×5 (03:03→20:44)
[2021-02-23 03:26] LABS: Adenovirus Not Detected (Not Detect); Bordetella Pertussis Not Detected (Not Detect); Chlamydophila pneumoniae Not Detected (Not Detect); Coronavirus 229E Not Detected (Not Detect); Coronavirus HKU1 Not Detected (Not Detect); Coronavirus NL63 Not Detected (Not Detect); Coronavirus OC43 Not Detected (Not Detect); Human Metapneumovirus Not Detected (Not Detect); Human Rhinovirus/Enterovirus Not Detected (Not Detect); Influenza A Subtype 2009 H1 Not Detected (Not Detect); Influenza B Not Detected (Not Detect); Mycoplasma pneumoniae Not Detected (Not Detect); Parainfluenza Virus 1 Not Detected (Not Detect); Parainfluenza Virus 2 Not Detected (Not Detect); Parainfluenza Virus 3 Not Detected (Not Detect); Parainfluenza Virus 4 Not Detected (Not Detect); Respiratory Syncytial Virus Not Detected (Not Detect); SARS-CoV-2 Not Detected (Not Detect)
[2021-02-23] MEDS: DilTIAZem 50 MG/50 ML IV.SOLN IVC SCH ×2 (03:39→08:54)
[2021-02-23] MEDS ORDERED: Ringers Solution, Lactated 500 ML IVC ONE (04:09)
[2021-02-23] MEDS ORDERED: Vancomycin 1,500 MG/265 ML IV.SOLN IVPB ONE (05:00)
[2021-02-23] MEDS ORDERED: Povidone-Iodine 45 ML, Sodium Chloride IRRigation 1,000 ML IR ONE (06:00)
[2021-02-23] MEDS ORDERED: Piperacillin/Tazobactam 3.375 GM in 0.9 % Sodium Chloride Mini Bag 100 ML IVPB SCH (08:00)
[2021-02-23] MEDS ORDERED: Metoprolol XL (24 HR) Succ 25 MG TAB.ER.24H PO SCH (09:00)
[2021-02-23] MEDS: predniSONE 20 MG TABLET PO SCH (11:14)
[2021-02-23] MEDS ORDERED: *HR* Digoxin 0.5 MG/2 ML AMPUL IVP ONE ×2 (11:54→14:45)
[2021-02-23] MEDS ORDERED: Famotidine 20 MG/2 ML VIAL IVP ONE (14:00)
[2021-02-23] MEDS ORDERED: Acetaminophen IV 1,000 MG/100 ML BAG IVPB ONE (14:00)
[2021-02-23] MEDS: Metoprolol XL (24 HR) Succ 25 MG TAB.ER.24H PO SCH (20:11)
[2021-02-24] MEDS: Levalbuterol Neb 1.25 MG/3 ML IH SCH ×4 (04:22→20:39)
[2021-02-24] MEDS: *HR* Enoxaparin 40 MG/0.4 ML SYRINGE SQ SCH (05:55)
[2021-02-24 06:13] LABS: Basophils % 0.3 %; Eosinophils % 0.2 %; Hematocrit 34.1 % (35.3-44.9); Hemoglobin 10.2 g/dL (11.5-15.4); Immature Granulocytes % 1.3 % (0-4); Lymphocytes # 0.8 K/mcL (0.6-4.6); Lymphocytes % 7.7 %; Mean Corpuscular HGB Conc 29.9 g/dL (31.6-35.5); Mean Corpuscular Hemoglobin 28.8 pg (28.0-33.3); Mean Corpuscular Volume 96.3 fL (83.0-100.0); Mean Platelet Volume 10.4 fL (9.4-12.4); Monocytes # 0.7 K/mcL (0.0-1.3); Monocytes % 7.2 %; Neutrophils # 8.4 K/mcL (1.6-8.9); Platelet Count 171 K/mcL (140-400); Red Blood Count 3.54 M/mcL (3.82-4.97); Red Cell Distribution Width 14.6 % (11.5-14.5); Segmented Neutrophils % 83.3 %
[2021-02-24 06:31] LABS: Magnesium 2.4 mg/dL (1.6-2.6); Phosphorous 2.5 mg/dL (2.7-4.5); Potassium 3.8 mEq/L (3.5-5.1)
[2021-02-24] MEDS ORDERED: Sennosides/Docusate Sodium TABLET PO PRN (07:25)
[2021-02-24] MEDS: Aspirin Enteric Coated 81 MG Tablet PO SCH (08:21)
[2021-02-24] MEDS: levoFLOXacin 750 MG TABLET PO SCH (08:21)
[2021-02-24] MEDS: predniSONE 20 MG TABLET PO SCH (08:21)
[2021-02-24] MEDS: Furosemide 20 MG/2 ML VIAL IVP SCH ×2 (08:22→23:19)
[2021-02-24] MEDS: Metoprolol XL (24 HR) Succ 25 MG TAB.ER.24H PO SCH ×2 (08:22→23:43)
[2021-02-24] MEDS ORDERED: haloperidoL 1 MG TABLET PO PRN (13:19)
[2021-02-25] MEDS: Levalbuterol Neb 1.25 MG/3 ML IH SCH ×4 (03:59→20:00)
[2021-02-25] MEDS: DilTIAZem 50 MG/50 ML IV.SOLN IVC SCH (05:04)
[2021-02-25] MEDS: *HR* Enoxaparin 40 MG/0.4 ML SYRINGE SQ SCH (05:34)
[2021-02-25 07:47] LABS: Magnesium 2.2 mg/dL (1.6-2.6); Phosphorous 2.2 mg/dL (2.7-4.5); Potassium 3.5 mEq/L (3.5-5.1)
[2021-02-25] MEDS: Aspirin Enteric Coated 81 MG Tablet PO SCH (08:57)
[2021-02-25] MEDS: Metoprolol XL (24 HR) Succ 25 MG TAB.ER.24H PO SCH ×2 (08:57→21:40)
[2021-02-25] MEDS: predniSONE 20 MG TABLET PO SCH (08:57)
[2021-02-25] MEDS: Furosemide 20 MG/2 ML VIAL IVP SCH ×2 (08:58→21:40)
[2021-02-26] MEDS: Levalbuterol Neb 1.25 MG/3 ML IH SCH ×2 (03:57→10:40)
[2021-02-26] MEDS: *HR* Enoxaparin 40 MG/0.4 ML SYRINGE SQ SCH (05:18)
[2021-02-26] MEDS: Metoprolol XL (24 HR) Succ 25 MG TAB.ER.24H PO SCH (10:33)
[2021-02-26] MEDS: predniSONE 20 MG TABLET PO SCH (10:33)
[2021-02-26] MEDS: Aspirin Enteric Coated 81 MG Tablet PO SCH (10:33)
[2021-02-26] MEDS: levoFLOXacin 750 MG TABLET PO SCH (10:33)
[2021-02-26] MEDS: Furosemide 20 MG/2 ML VIAL IVP SCH (10:33)
[2021-02-26 10:43] VITALS: O2SAT 94
[2021-02-26 12:20] VITALS: BP 102/61; PULSE 95; TEMP 97.7
== END 2021-02-26 15:10 | DRG 920 ==
LOC: 4WAOSI → SUATTDRO 12:39 → 3NENU 02-23 05:11
PROVIDERS: ADMIT Internal Medicine; ATTEND Internal Medicine